=== PATIENT | male | born 1980 | race Caucasian/White ===

== ENCOUNTER 2018-02-03 22:56 | Emergency (ER) | payer SELFPAY ==
[2018-02-03] MEDS ORDERED: LIDOCAINE 1%/EPINEPHrine 1:100,000 SOLN 30 ML VIAL ONE (23:04)
[2018-02-03 23:12] VITALS: BP 121/75; PULSE 111; RESP 18; TEMP 98.9; O2SAT 98
[2018-02-03] MEDS ORDERED: LIDOCAINE 1%/EPINEPHrine 1:100,000 SOLN 20 ML VIAL INFIL ONE (23:15)
--- NOTE | 2018-02-03 23:34 | RADRPT ---
EXAM DATE: 02/03/2018 11:25 PM EDT AGE/SEX: 37 years / Male INDICATIONS: Trauma, hit head on wall. CLINICAL DATA: This is the patient's initial encounter. Patient reports that signs and symptoms have been present for 1 day and indicates a pain score of 5/10. MEDICAL/SURGICAL HISTORY: None. None. RADIATION DOSE: 56.35 CTDI (mGy) COMPARISON: No prior [facility] exams available for comparison. TECHNIQUE: CT of the head without contrast. Using automated exposure control and adjustment of the mA and/or kV according to patient size, radiation dose was kept as low as reasonably achievable to ob tain optimal diagnostic quality images. FINDINGS: Cerebrum: The ventricles are normal for age. No evidence of midline shift, mass lesion, hemorrhage or acute infarction. No extraaxial fluid collections are seen. Posterior Fossa: The cerebellum and brainstem are intact. The 4th ventricle is midline. The cerebe llopontine angle is unremarkable. Extracranial: There is mucoperiosteal thickening of the visualized ethmoid and maxillary air cells. Skull: The calvaria is intact. No evidence of skull fracture. CONCLUSION: 1. No bleed or other acute intracranial abnormality. 2. Chronic appearing paranasal sinus disease. Electronically signed by: Dieudonne Myers MD 02/03/2018 11:32 PM EDT
--- NOTE | 2018-02-03 23:54 | PD ---
HPI Chief Complaint: Laceration/Skin Injury Time Seen by Provider: 23:01 Travel History International Travel<30 days: No Contact w/Intl Traveler<30days: No Traveled to known affect area: No History of Present Illness HPI This is a 37-year-old male who presents under police custody for evaluation of head injury. The patient is intoxicated. He was arrested this evening. As he was being placed into the police car he hit his head forcefully against the edge of the door. He sustained a laceration to the frontal scalp. He reports a frontal headache associated with the wound. Headache is mild, aggravated by trauma. No alleviating factors. Last tetanus vaccination 6 months ago. Denies any loss of consciousness, confusion, amnesia, nausea, vomiting, neck or back pain. He has no other complaints at this time. [facility] Social History Alcohol Use: Yes Tobacco Use: Yes Allergies-Medications (Allergen,Severity, Reaction): Coded Allergies: Penicillins (Verified Allergy, Unknown, 02/03/18) Reported Meds & Prescriptions Reported Meds & Active Scripts Active No Active Prescriptions or Reported Medications Review of Systems Except as stated in HPI: all other systems reviewed are Neg Physical Exam Narrative GENERAL: Well-developed well-nourished male in no acute distress SKIN: Warm and dry. 3 cm linear frontal scalp laceration with some bleeding, no pulsating blood. HEAD: Skin as noted above. Normocephalic. EYES: Pupils equal and round. No scleral icterus. No injection or drainage. ENT: No nasal bleeding or discharge. Mucous membranes pink and moist. NECK: Trachea midline. No JVD. CARDIOVASCULAR: Regular rate and rhythm. No murmur appreciated. RESPIRATORY: No accessory muscle use. Clear to auscultation. Breath sounds equal bilaterally. GASTROINTESTINAL: Abdomen soft, non-tender, nondistended. Hepatic and splenic margins not palpable. MUSCULOSKELETAL: No obvious deformities. No clubbing. No cyanosis. No edema. NEUROLOGICAL: Awake and alert. No obvious cranial nerve deficits. Motor grossly within normal limits. Normal speech. Data Data Last Documented VS Vital Signs Date Time Temp Pulse Resp B/P (MAP) Pulse Ox O2 Delivery O2 Flow Rate FiO2 02/03/18 23:12 98.9 111 18 121/75 (90) 98 Orders Orders Lidocai-Epi 1%-1:100,000 Inj (Xylocaine- (02/03/18 23:15) Ct Brain W/O Iv Contrast(Rout) (02/03/18 ) Lidocai-Epi 1%-1:100,000 Inj (Xylocaine- (02/03/18 23:04) MDM Medical Decision Making Medical Screen Exam Complete: Yes Emergency Medical Condition: Yes Medical Record Reviewed: Yes Differential Diagnosis Closed head injury, skull fracture, intracranial hemorrhage, scalp laceration Narrative Course CT the brain was obtained revealing no acute abnormalities. The laceration was repaired with sutures, he verbally consented. Procedures Procedure Narrative LACERATION LOCATION: Frontal scalp LENGTH: 3 cm NUMBER OF STITCHES/BUNNY: 6 REPAIR: The area of the laceration was prepped with Betadine and sterilely draped. The laceration was infiltrated with 1% lidocaine with epinephrine. The wound was copiously irrigated and explored without evidence of foreign body , tendon injury or neurovascular injury. The wound was closed using 5-0 nylon simple interrupted. This was a single layer repair. A sterile dressing was applied. The patient was advised to keep the dressing clean and dry. Patient tolerated the procedure well. Diagnosis Primary Impression: Scalp laceration Additional Instructions: Wash the wounds twice a day with soap and water and apply antibiotic cream. Return in 7-10 days for suture removal. Med/Other Pt SpecificInfo: Wound Care Scripts No Active Prescriptions or Reported Meds Disposition: 01 DISCHARGE HOME Condition: Stable Herson Adamson February 03, 2018 23:54
== END 2018-02-04 00:19 | disposition home or self-care (01) ==
LOC: NEPD 22:56
DX: S01.01XA Laceration without foreign body of scalp, initial encounter (principal); W22.8XXA Striking against or struck by other objects, initial encounter; Y35.893A Legal intervention involving other specified means, suspect injured, initial encounter; Y92.810 Car as the place of occurrence of the external cause
CPT/HCPCS: 12002; 70450

== ENCOUNTER 2018-02-15 12:15 | Emergency (ER) | payer SELFPAY ==
[~2018-02-15] VITALS: Ht 175.3 cm; Wt 90.0 kg
[2018-02-15 12:26] VITALS: BP 119/74; PULSE 88; RESP 22; TEMP 98.3; O2SAT 93
[2018-02-15] MEDS ORDERED: SODIUM CHLORIDE 0.9% FLUSH 10 ML FLUSH IVF PRN (12:45)
[2018-02-15] MEDS ORDERED: methylPREDNISolone SOD SUCC 125 MG/2 ML VIAL IV PUSH ONE (12:45)
[2018-02-15] MEDS ORDERED: predniSONE 20 MG TAB PO ONE (12:45)
[2018-02-15] MEDS ORDERED: RESP: BUDESONIDE 0.5 MG/2 ML NEB NEB ONE (12:45)
[2018-02-15] MEDS: RESP: ALBUTEROL 2.5 MG/IPRATROPIUM 0.5 MG NEB (SCH) INH ×4 (12:46→13:49)
--- NOTE | 2018-02-15 12:47 | PD ---
HPI Chief Complaint: Respiratory Symptoms Time Seen by Provider: 12:39 Travel History International Travel<30 days: No Contact w/Intl Traveler<30days: No Traveled to known affect area: No History of Present Illness HPI 37-year-old male patient with history of asthma, presents to the ER today because he started having wheezing and shortness of breath at work, had ran out of his nebulizers and inhalers. He denies any significant fevers, coughing, or other symptoms. He states that this feels like his usual asthma. Modifying Factors: None Associated Signs & Symptoms: Shortness of breath, wheezing Risk Factors: Asthma history, ran out of meds PFSH Past Medical History Asthma: Yes ?: Not Past Surgical History Abdominal Aneurysm Repair: Yes (hernia) Appendectomy: Yes Other Surgery: Yes (radial artery repair) Social History Alcohol Use: Yes (occasional) Tobacco Use: Yes (1/2 ppd) Substance Use: No Allergies-Medications (Allergen,Severity, Reaction): Coded Allergies: Penicillins (Verified Allergy, Unknown, 02/15/18) Reported Meds & Prescriptions Reported Meds & Active Scripts Active No Active Prescriptions or Reported Medications Review of Systems Except as stated in HPI: all other systems reviewed are Neg Physical Exam Narrative GENERAL: Well-developed young male patient currently in mild distress. Awake and oriented 3. SKIN: Focused skin assessment warm/dry. HEAD: Atraumatic. Normocephalic. EYES: Pupils equal and round. No scleral icterus. No injection or drainage. ENT: No nasal bleeding or discharge. Mucous membranes pink and moist. NECK: Trachea midline. No JVD. CARDIOVASCULAR: Regular rate and rhythm. No murmur appreciated. RESPIRATORY: Mild accessory muscle use. Wheezing throughout. Breath sounds equal bilaterally. GASTROINTESTINAL: Abdomen soft, non-tender, nondistended. Hepatic and splenic margins not palpable. MUSCULOSKELETAL: No obvious deformities. No clubbing. No cyanosis. No edema. NEUROLOGICAL: Awake and alert. No obvious cranial nerve deficits. Motor grossly within normal limits. Normal speech. PSYCHIATRIC: Appropriate mood and affect; insight and judgment normal. Data Data Last Documented VS Vital Signs Date Time Temp Pulse Resp B/P (MAP) Pulse Ox O2 Delivery O2 Flow Rate FiO2 02/15/18 13:05 95 Room Air 02/15/18 12:26 98.3 88 22 119/74 (89) Orders Orders Ecg Monitoring (02/15/18 12:39) Oximetry (02/15/18 12:39) Oxygen Administration (02/15/18 12:39) Methylprednisolone So Succ Inj (Solumedr (02/15/18 12:45) Albuterol-Ipratropium Neb (Duoneb Neb) (02/15/18 12:45) Sodium Chloride 0.9% Flush (Ns Flush) (02/15/18 12:45) Budesonide Neb (Pulmicort Respule Neb) (02/15/18 12:45) Prednisone (Deltasone) (02/15/18 12:45) Albuterol-Ipratropium Neb (Duoneb Neb) (02/15/18 13:45) Ed Discharge Order (02/15/18 14:30) [facility] Medical Decision Making Medical Screen Exam Complete: Yes Emergency Medical Condition: Yes Medical Record Reviewed: Yes Differential Diagnosis Bronchitis versus asthma exacerbation Narrative Course Patient was given several nebulizers and prednisone in the ER. On reevaluation at 2:30 PM, is feeling improved, and wheezing has improved. At this point, my plan would be to release him with further treatment. Return for any worsening in symptoms as necessary. The plan was discussed with him and he states understanding. Diagnosis Primary Impression: Asthma exacerbation Med/Other Pt SpecificInfo: Prescription(s) given Scripts Albuterol 8.5 GM Inh (Proair Hfa 8.5 GM Inh) 90 Mcg/Act Aer 2 PUFF INH Q4-6H Y for SHORTNESS OF BREATH, #1 INHALER 0 Refills 108 mcg/actuation Prov: Kiarra Quintana MD 02/15/18 Prednisone (Prednisone) 50 Mg Tab 50 MG PO DAILY for 5 Days, #5 TAB 0 Refills Prov: Kiarra Quintana MD 02/15/18 Disposition: 01 DISCHARGE HOME Condition: Stable Kiarra Quintana MD Feb 15, 2018 12:47
[2018-02-15 13:05] VITALS: O2SAT 95
[2018-02-15] MEDS ORDERED: PRED50 PO (14:32)
[2018-02-15] MEDS ORDERED: ALBUAER3 INH (14:32)
== END 2018-02-15 14:55 | disposition home or self-care (01) ==
LOC: NEPC 12:15
DX: J45.901 Unspecified asthma with (acute) exacerbation (principal); F17.200 Nicotine dependence, unspecified, uncomplicated
CPT/HCPCS: 94640; 94664; 99284; J7512

== ENCOUNTER 2018-07-14 02:40 | Observation (INO) ==
[2018-07-14] MEDS ORDERED: MethylPREDNISolone Sod Succinate Inj 125 MG/2 ML Vial IV.PUSH ONE (02:48)
[2018-07-14 03:37] LABS: Baso # (Auto) 0.2 th/mm3 (0.0-0.2); Baso % (Auto) 1.7 % (0.0-2.0); Eos # (Auto) 0.6 th/mm3 (0.0-0.4); Eos % (Auto) 6.4 % (0.0-4.0); Hemoglobin 16.2 gm/dL (13.0-17.0); Lymph % (Auto) 43.9 % (9.0-44.0); Mean Corpuscular HGB Conc 34.5 % (32.0-36.0); Mean Corpuscular Hemoglobin 30.3 pg (27.0-34.0); Mean Corpuscular Volume 87.9 fL (80.0-100.0); Mean Platelet Volume 8.5 fL (7.0-11.0); Mono # (Auto) 0.8 th/mm3 (0.0-0.9); Mono % (Auto) 8.7 % (0.0-8.0); Neut # (Auto) 3.6 th/mm3 (1.8-7.7); Neut % (Auto) 39.3 % (16.0-70.0); Platelet Count 331 th/mm3 (150-450); Red Blood Count 5.35 mil/mm3 (4.50-5.90); Red Cell Distribution Width 13.1 % (11.6-17.2); White Blood Count 9.2 th/mm3 (4.0-11.0)
[2018-07-14 03:38] LABS: Potassium 3.8 meq/L (3.5-5.1)
--- NOTE | 2018-07-14 03:40 | XR ---
EXAM DATE: 07/14/2018 3:07 AM EDT AGE/SEX: 37 years / Male INDICATIONS: Shortness of breath worsening over the past few days. CLINICAL DATA: This is the patient's initial encounter. Patient reports that signs and symptoms have been present for 2 days and indicates a pain score of 0/10. MEDICAL/SURGICAL HISTORY: Asthma. Hiatal hernia Arm surgery Appendectomy. COMPARISON: [facility] [place] THORACIC SP[place] W/O CONTRAST, 03/13/2018. . FINDINGS: The cardiac silhouette is normal in transverse diameter. The lungs are free of acute parenchymal opac ity. No effusions are identified. A large hiatal hernia is present. CONCLUSION: No acute cardiopulmonary disease. Hiatal hernia. Electronically signed by: Fausto Marie MD 07/14/2018 3:38 AM EDT
[2018-07-14 03:41] LABS: Calcium 8.6 mg/dL (8.5-10.1); Carbon Dioxide 25.4 meq/L (21.0-32.0)
[2018-07-14] MEDS ORDERED: Sod Chloride 0.9% Inj 1,000 ML IV.SIG SCH (04:30)
[2018-07-14] MEDS ORDERED: Acetaminophen 500 MG Tablet PO ONE (05:11)
--- NOTE | 2018-07-14 06:13 | ED ---
HPI General Chief Complaint: Respiratory Symptoms Stated Complaint: sob/hx asthma Time Seen by Provider: 07/14/18 02:47 Source: patient Mode of arrival: ambulatory Limitations: no limitations History of Present Illness complaint: Reports "asthma attack" Onset (ago): day(s) (1) Severity: moderate Context: Reports ran out of meds Associated symptoms: Reports none Asthma History: Reports childhood onset and history of frequent attacks Treatments Prior to Arrival: Reports inhaled bronchodilator and inhaled steroid Related Data Previous Rx's Medication Instructions Recorded albuterol sulfate 2 inh INHALATION Q4-6H PRN #18 g 06/19/18 ipratropium bromide 2.5 ml INHALATION Q4H PRN #75 ml 06/19/18 Allergies Allergy/AdvReac Type Severity Reaction Status Date / Time Penicillins Allergy Unknown Hives Verified 07/14/18 02:52 Review of Systems ROS: all other systems reviewed are negative [facility] Medical History Medical History Asthma (Acute) Surgical History Surgical History History of appendectomy (Acute) History of repair of hiatal hernia (Acute) History of surgery on arm (Acute) Social History Social History Substance History: No History of Abuse Second Hand Smoke Exposure: No Smoking Status: Former smoker Tobacco Type: Cigarettes How Often Do You Have a Drink Containing Alcohol: 2 to 4 times a month Recent Travel in [place] within the Last 8 Weeks: No Recent Out of Country Travel within the Last 8 Weeks: No Immunization History Tetanus Immunization: <5 Years Tetanus Immunization Year if Known: 2017 Exam Narrative Exam Narrative: GENERAL: Well-nourished, well-developed patient. Moderate respiratory distress with wheezing. SKIN: Focused skin assessment warm/dry. HEAD: Normocephalic. EYES: No scleral icterus. No injection or drainage. NECK: Supple, trachea midline. No JVD or lymphadenopathy. CARDIOVASCULAR: Regular rate and rhythm without murmurs, gallops, or rubs. RESPIRATORY: Breath sounds equal bilaterally diffuse bilateral wheezing. No accessory muscle use. GASTROINTESTINAL: Abdomen soft, non-tender, nondistended. MUSCULOSKELETAL: No cyanosis, or edema. BACK: Nontender without obvious deformity. No CVA tenderness. Course Initial Documented Vital Signs Temperature 98.5 F 07/14/18 02:48 Pulse Rate 90 07/14/18 02:48 Respiratory Rate 20 07/14/18 02:48 Blood Pressure 144/82 H 07/14/18 02:48 Pulse Oximetry 92 L 07/14/18 02:48 Last Documented Vital Signs Temperature 98.5 F 07/14/18 02:48 Pulse Rate 91 H 07/14/18 06:30 Respiratory Rate 18 07/14/18 06:30 Blood Pressure 146/66 H 07/14/18 05:11 Pulse Oximetry 94 L 07/14/18 05:11 Medical Decision Making MDM Narrative Medical decision making narrative: 37-year-old male presents to the emergency department with exacerbation of asthma. Patient typically takes Advair as a rescue inhaler albuterol nebulizer and prednisone therapy but has recently moved to the area and has run out of his medications. Patient states he does have a job but has not had his medical insurance initiated. Patient states that he has had no recent febrile illness productive cough chest pain pleuritic chest pain recent travel injury fall or known precipitating allergen exposure. Patient states has had hospitalization in the past has required intensive care management and been intubated twice in the past related to his asthma. Patient is a non-smoker. Patient placed on cardiac cath lab manager supplement oxygen administered DuoNeb updrafts x3 ordered along with Solu-Medrol infusion chest x-ray ordered Chest x-ray reveals no acute infiltrate no pneumothorax Patient notes improvement of symptoms and lung sounds are clear after DuoNeb updraft x3 Patient awaiting lab results Patient again complains of some tightness additional DuoNeb updraft administered It is 6:20 AM patient states that he is much improved At 720 patient states he still feels some improved but as soon as he is removed from supplemental oxygen he desaturates to 90 and 88% therefore have discussed with patient it would be beneficial for him to stay and have ongoing IV steroids and bronchodilator therapy until he stabilizes and can transition to maintenance medications to which she now agrees as he had previously been desirous of being discharged and did not want to have to stay. Patient agrees for observation. Call placed to [facility] service-- accepted for OBS by Dr Mandujano Medical Screen Exam Complete: Yes Emergency Medical Condition: Yes Differential Diagnosis Differential Diagnosis: Exacerbation asthma bronchitis pneumonia also to consider pneumothorax pulmonary embolism unlikely CHF Medical Records Medical records reviewed: Yes I reviewed the patient's medical records. Lab Data Lab results reviewed: Yes I reviewed the patient's lab results. Result diagrams: 07/14/18 02:53 07/14/18 02:53 Lab Results 07/14/18 07/14/18 Range/Units 02:53 02:53 CBC w Diff Slide review pending WBC 9.2 (4.0-11.0) th/mm3 RBC 5.35 (4.50-5.90) mil/mm3 Hgb 16.2 (13.0-17.0) gm/dL Hct 47.0 (39.0-51.0) % MCV 87.9 (80.0-100.0) fL MCH 30.3 (27.0-34.0) pg MCHC 34.5 (32.0-36.0) % RDW 13.1 (11.6-17.2) % Plt Count 331 (150-450) th/mm3 MPV 8.5 (7.0-11.0) fL Neut % (Auto) 39.3 (16.0-70.0) % Lymph % (Auto) 43.9 (9.0-44.0) % [place] % (Auto) 8.7 H (0.0-8.0) % Eos % (Auto) 6.4 H (0.0-4.0) % Baso % (Auto) 1.7 (0.0-2.0) % Neut # (Auto) 3.6 (1.8-7.7) th/mm3 Lymph # (Auto) 4.0 (1.0-4.8) th/mm3 [place] # (Auto) 0.8 (0.0-0.9) th/mm3 Eos # (Auto) 0.6 H (0.0-0.4) th/mm3 Baso # (Auto) 0.2 (0.0-0.2) th/mm3 WBC Differential . Diff Scan Auto diff confirmed Differential Comment . Sodium 139 (136-145) meq/L Potassium 3.8 (3.5-5.1) meq/L Chloride 106 (98-107) meq/L Carbon Dioxide 25.4 (21.0-32.0) meq/L Anion Gap 8 (5-15) meq/L BUN 13 (7-18) mg/dL Creatinine 1.20 (0.60-1.30) mg/dL Estimated GFR 68 L (>89) mL/min Random Glucose 86 (74-106) mg/dL Calcium 8.6 (8.5-10.1) mg/dL Imaging Data Radiologist's impression: Chest X-Ray 07/14/18 02:48 CONCLUSION: No acute cardiopulmonary disease. Hiatal hernia. Discharge Plan Discharge Disposition Patient Disposition: 30 Still Patient Discharge Condition Condition: Stable Discharge Details Diagnosis: Asthma exacerbation Physicians Team ED Provider: Gretta Victor Primary Care Provider: Primary Care Hattie Youngblood Rxs /Orders / Referrals /Forms Prescriptions: No Action albuterol sulfate 90 mcg/actuation HFA aerosol inhaler 2 inh INHALATION Q4-6H PRN (Reason: shortness of breath) Qty: 18 RF: 0 ipratropium bromide 0.02 % solution 2.5 ml INHALATION Q4H PRN (Reason: shortness of breath or wheezing) Qty: 75 RF: 0 Status ED Status: With Doctor
[2018-07-14] MEDS ORDERED: Bisacodyl 10 MG Supp RECTAL PRN (07:54)
[2018-07-14] MEDS ORDERED: Acetaminophen 325 MG Tablet PO PRN (07:54)
[2018-07-14] MEDS ORDERED: MethylPREDNISolone Sod Succinate Inj 125 MG/2 ML Vial IV.PUSH SCH (08:00)
[2018-07-14] MEDS ORDERED: Senna/Docusate Sodium 8.6/50 MG Tablet PO SCH (09:00)
[2018-07-14 09:22] VITALS: RESP 18
[2018-07-14 12:03] VITALS: BP 127/66; PULSE 103; TEMP 95.4; O2SAT 94
--- NOTE | 2018-07-14 13:11 | P.HP ---
History of Present Illness Primary Care Physician: No Primary Care Physician Chief Complaint: Shortness of breath History of Present Illness: This is a 37-year-old male with a history of asthma. He has a significant history of being intubated twice. States he ran out of asthma medications 2 months ago when his insurance was dropped. For the past week he has been having dyspnea with wheezing. Initially he had productive cough of slightly yellow phlegm. Denies fever, chills and hemoptysis. He was seen in the emergency department received 3 doses of nebulization and Solu-Medrol and felt better however was noted to be mildly hypoxic 88% on room air and was advised hospitalization. At this time, he feels much better without shortness of breath. He has ambulated in the hallway. He passed walk test. States he is no longer coughing for several days and wants to go home requesting refill of his medications. All other systems reviewed negative Review of Systems All other systems reviewed negative except as stated in HPI PMFSH - History History Provided By: Patient - Medical History Medical History: Medical History (Last Reviewed 07/14/18 @ 13:42 by Arash Mandujano MD) Asthma - Surgical History Surgical History: Surgical History (Last Reviewed 07/14/18 @ 13:42 by Arash Mandujano MD) History of appendectomy History of repair of hiatal hernia History of surgery on arm - Family History Family History: Family History (Last Updated 07/14/18 @ 13:42 by Arash Mandujano MD) Other No pertinent family history - Tobacco History Second Hand Smoke Exposure: No Tobacco Use In Past 30 Days: No (QUIT 6 MONTHS AGO) Smoking Status: Never smoker Tobacco Type: Cigarettes - Alcohol History How Often Do You Have a Drink Containing Alcohol: Monthly or less - Substance Use History Substance History: No History of Abuse - Travel History Recent Travel in the [place] Within the Last 8 Weeks: No Recent Travel Out of the Country Within the Last 8 Weeks: No - Immunization History Tetanus Immunization: <5 Years Tetanus Immunization Year if Known: 2017 Medications and Allergies Active Medications: Active Medications Acetaminophen (Tylenol) 650 mg PO Q4H PRN PRN Reason: Temp > 100.4 Al Hydroxide/Mg Hydroxide (Milk Of Magnesia Liq) 30 ml PO Q12H PRN PRN Reason: Mild Constipation Albuterol (Albuterol Neb (Prn)) 2.5 mg NEB Q2HR NEB PRN PRN Reason: DYSPNEA Albuterol (Albuterol Neb (Selena)) 2.5 mg NEB Q6HR NEB SELENA Last Admin: 07/14/18 10:00 Dose: 2.5 mg Bisacodyl (Dulcolax Supp) 10 mg RECTAL DAILY PRN PRN Reason: SEVERE CONSITIPATION Lactulose (Lactulose Liq) 30 ml PO DAILY PRN PRN Reason: SEVERE CONSITIPATION Methylprednisolone Sodium Succinate (Solumedrol Inj) 60 mg IV.PUSH Q6H SELENA Last Admin: 07/14/18 09:16 Dose: 60 mg Ondansetron HCl (Zofran Inj) 4 mg IV.PUSH Q6H PRN PRN Reason: NAUSEA OR VOMITING Senna/Docusate Sodium (Fidelia-Colace) 1 tab PO BID SELENA Last Admin: 07/14/18 09:17 Dose: Not Given Sennosides (Senokot) 17.2 mg PO Q12H PRN PRN Reason: Moderate Constipation Allergies Allergy/AdvReac Type Severity Reaction Status Date / Time Penicillins Allergy Unknown Hives Verified 07/14/18 02:52 Exam Vital signs: Vital Signs 07/14/18 02:48 07/14/18 02:54 07/14/18 03:00 Temperature 98.5 F Pulse Rate 90 90 89 Respiratory Rate 20 20 Blood Pressure 144/82 H Pulse Oximetry 92 L 92 L 92 L 07/14/18 04:35 07/14/18 04:45 07/14/18 05:11 Temperature Pulse Rate 96 H 87 92 H Respiratory Rate 18 18 18 Blood Pressure 144/82 H 146/66 H Pulse Oximetry 96 94 L 07/14/18 06:30 07/14/18 07:45 07/14/18 08:00 Temperature 97.9 F 95.6 F L Pulse Rate 91 H 92 H 90 Respiratory Rate 18 16 18 Blood Pressure 123/67 117/64 Pulse Oximetry 93 L 95 07/14/18 08:05 07/14/18 10:00 07/14/18 10:03 Temperature Pulse Rate 79 Respiratory Rate 18 Blood Pressure Pulse Oximetry 91 L 96 96 07/14/18 12:00 Temperature 95.4 F L Pulse Rate 103 H Respiratory Rate 18 Blood Pressure 127/66 Pulse Oximetry 94 L Intake & Output 07/13/18 07/14/18 07/14/18 18:59 06:59 18:59 Intake Total 1000 / 1000 Balance 1000 / 1000 Weight 96.8 kg 96.8 kg Intake: IV 1000 / 1000 NS Inj 1,000 ML @ 1000 mls/hr 1000 / 1000 IV.SIG BOLUS SELENA Rx#:[id number] Other: Weight On Admission 96.8 kg Narrative: GENERAL: Well-developed, well-nourished in no distress SKIN: Warm and dry. HEAD: Atraumatic. Normocephalic. EYES: Pupils equal and round. No scleral icterus. No injection or drainage. ENT: No nasal bleeding or discharge. Mucous membranes pink and moist. NECK: Trachea midline. No JVD. CARDIOVASCULAR: Regular rate and rhythm. RESPIRATORY: No accessory muscle use. Clear to auscultation. Breath sounds equal bilaterally. GASTROINTESTINAL: Abdomen soft, non-tender, nondistended. MUSCULOSKELETAL: Extremities without clubbing, cyanosis, or edema. No obvious deformities. NEUROLOGICAL: Awake and alert. No obvious cranial nerve deficits. Motor grossly within normal limits. Five out of 5 muscle strength in the arms and legs. Normal speech. PSYCHIATRIC: Appropriate mood and affect; insight and judgment normal. Results - Labs CBC & Chem 7: 07/14/18 02:53 07/14/18 02:53 Labs: Laboratory Results - last 24 hr 07/14/18 07/14/18 02:53 02:53 CBC w Diff Slide review pending WBC 9.2 RBC 5.35 Hgb 16.2 Hct 47.0 MCV 87.9 MCH 30.3 MCHC 34.5 RDW 13.1 Plt Count 331 MPV 8.5 Neut % (Auto) 39.3 Lymph % (Auto) 43.9 [place] % (Auto) 8.7 H Eos % (Auto) 6.4 H Baso % (Auto) 1.7 Neut # (Auto) 3.6 Lymph # (Auto) 4.0 [place] # (Auto) 0.8 Eos # (Auto) 0.6 H Baso # (Auto) 0.2 WBC Differential . Diff Scan Auto diff confirmed Differential Comment . Sodium 139 Potassium 3.8 Chloride 106 Carbon Dioxide 25.4 Anion Gap 8 BUN 13 Creatinine 1.20 Estimated GFR 68 L Random Glucose 86 Calcium 8.6 - Imaging Impressions Chest X-Ray 07/14/18 02:48 CONCLUSION: No acute cardiopulmonary disease. Hiatal hernia. Caprini VTE Risk Assessment Caprini VTE Risk Assessment: No/Low Risk (score <= 1) Caprini Risk Assessment Model: Point Value = 1 Point Value = 2 Point Value = 3 Point Value = 5 Age 41-60 Minor surgery BMI > 25 kg/m2 Swollen legs Varicose veins or History of unexplained or recurrent spontaneous Oral contraceptives or hormone replacement Sepsis (< 1 month) Serious lung disease, including pneumonia (< 1 month) Abnormal pulmonary function Acute myocardial infarction Congestive heart failure (< 1 month) History of inflammatory bowel disease Medical patient at bed rest Age 61-74 Arthroscopic surgery Major open surgery (> 45 min) Laparoscopic surgery (> 45 min) Malignancy Confined to bed (> 72 hours) Immobilizing plaster cast Central venous access Age >= 75 History of VTE Family history of VTE Factor V Leiden Prothrombin [id number] Lupus anticoagulant Anticardiolipin antibodies Elevated serum homocysteine Heparin-induced thrombocytopenia Other congenital or acquired thrombophilia Stroke (< 1 month) Elective arthroplasty Hip, pelvis, or leg fracture Acute spinal cord injury (< 1 month) Prophylaxis Regimen: Total Risk Factor Score Risk Level Prophylaxis Regimen 0-1 Low Early ambulation 2 Moderate Order ONE of the following: *Sequential Compression Device (SCD) *Heparin 5000 units SQ BID 3-4 Higher Order ONE of the following medications: *Heparin 5000 units SQ TID *Enoxaparin/Lovenox 40 mg SQ daily (WT < 150 kg, CrCl > 30 mL/min) *Enoxaparin/Lovenox 30 mg SQ daily (WT < 150 kg, CrCl > 10-29 mL/min) *Enoxaparin/Lovenox 30 mg SQ BID (WT < 150 kg, CrCl > 30 mL/min) AND/OR *Sequential Compression Device (SCD) 5 or more Highest Order ONE of the following medications: *Heparin 5000 units SQ TID (Preferred with Epidurals) *Enoxaparin/Lovenox 40 mg SQ daily (WT < 150 kg, CrCl > 30 mL/min) *Enoxaparin/Lovenox 30 mg SQ daily (WT < 150 kg, CrCl > 10-29 mL/min) *Enoxaparin/Lovenox 30 mg SQ BID (WT < 150 kg, CrCl > 30 mL/min) AND *Sequential Compression Device (SCD) Assessment and Plan - Plan This is a 37-year-old male with a history of asthma significant for respiratory failure requiring intubation twice. States he ran out of asthma medications 2 months ago when his insurance was dropped. For the past week he has been having dyspnea with wheezing. Initially he had productive cough of slightly yellow phlegm. Denies fever, chills and hemoptysis. He was seen in the emergency department received 3 doses of nebulization and Solu-Medrol and felt better however was noted to be mildly hypoxic 88% on room air and was advised hospitalization. At this time, he feels much better without shortness of breath. He has ambulated in the hallway. He passed walk test. States he is no longer coughing for several days and wants to go home requesting refill of his medications. Prophylaxis with SCD Discharge Planning: Discharge patient to home Condition on discharge: Improved Regular Diet as tolerated Ad Yuli activity Rx written: Prednisone, Symbicort, albuterol inhaler and Atrovent nebulization Follow-up with primary care physician
[2018-07-14] MEDS ORDERED: predniSONE 20 MG Tablet PO SCH (14:00)
[2018-07-14] MEDS ORDERED: Budesonide-Formoterol 80/4.5 MCG 6.9 GM Inhaler INH SCH (14:00)
== END 2018-07-14 14:15 | disposition home or self-care (01) ==
LOC: PHEDA 02:40 → PHED 02:40 → PH3 08:38
PROVIDERS: ADMIT Internal Medicine; ATTEND Internal Medicine